=== PATIENT | female | born 1945 | race Caucasian/White ===

== ENCOUNTER 2019-11-18 13:47 | Outpatient (CLI) | payer MEDICARE, SELFPAY ==
--- NOTE | ~2019-11-18 | MM_ITS ---
EXAMINATION: MM screening mary kay BI w harrison HISTORY: Screening mammogram TECHNIQUE: Craniocaudal and mediolateral oblique 3-D tomosynthesis images were obtained and synthetic 2-D images were generated. CAD analysis was submitted and interpreted. COMPARISON: No prior mammogram is available for comparison at this institution. BREAST PARENCHYMAL COMPOSITION: The breasts are extremely dense, which lowers the sensitivity of mamm ography. FINDINGS: There is no evidence of suspicious mass, calcification, or architectural distortion to sugg est malignancy in either breast. There has been no suspicious interval change. IMPRESSION: 1. No mammographic evidence of malignancy. 2. Recommend routine screening mammography in one year. BI-RADS Category 1: Negative Reviewed, dictated and finalized at location A.
--- NOTE | ~2019-11-18 | DEXA_ITS ---
Bone Density Report Name: Zena Simmons Age: 74 Sex: Female Ethnicity: White Date of : 1945 Indication: osteopenia; height loss; Referring Provider: Marcus Rivas Study: Bone densitometry was performed. Exam Date: November 18, 2019 Accession number: [id number] Bone Density: Region BMD T-score Z-score Classification AP Spine (L1-L4) 0.777 -2.5 0.0 Osteoporosis Femoral Neck (Left) 0.649 -1.8 0.3 Osteopenia Total Hip (Left) 0.725 -1.8 0.0 Osteopenia Total Hip Bilateral Avg 0.726 -1.8 0.0 Osteopenia Femoral Neck (Right) 0.610 -2.2 -0.1 Osteopenia Total Hip (Right) 0.726 -1.8 0.0 Osteopenia World Health Organization criteria for BMD impression classify patients as: Normal (T-score at or above -1.0), Osteopenia (T-score between -1.0 and -2.5), or Osteoporosis (T-score at or below -2.5). 10-year Fracture Risk: FRAX not reported because: Some T-score for Spine Total or Hip Total or Femoral Neck at or below -2.5 Previous Exams: Region Exam Age BMD T-score BMD Change BMD Change Date g/cm2 vs Baseline vs Previous AP Spine(L1-L4) 11/18/2019 74 0.777 -2.5 -0.159(-17.0%) -0.090(-10.3%) 02/04/2014 68 0.867 -1.6 -0.069(-7.4%)# 0.022(2.6%)# 01/24/2012 66 0.845 -1.8 -0.091(-9.7%)# -0.050(-5.6%)# 11/21/2008 63 0.894 -1.4 -0.041(-4.4%)* -0.041(-4.4%)* 10/20/2004 59 0.936 -1.0 Total Hip(Left) 11/18/2019 74 0.725 -1.8 -0.099(-12.0%) -0.031(-4.1%)* 02/04/2014 68 0.756 -1.5 -0.068(-8.3%)# -0.034(-4.3%)# 01/24/2012 66 0.790 -1.2 -0.035(-4.2%)# 0.000(0.0%)# 11/21/2008 63 0.789 -1.3 -0.035(-4.2%)* -0.035(-4.2%)* 10/20/2004 59 0.824 -1.0 Total Hip(Right) 11/18/2019 74 0.726 -1.8 -0.116(-13.8%) -0.029(-3.9%)* 02/04/2014 68 0.756 -1.5 -0.087(-10.3%) -0.019(-2.4%)# 01/24/2012 66 0.775 -1.4 -0.068(-8.0%)# -0.023(-2.8%)# 11/21/2008 63 0.797 -1.2 -0.045(-5.4%)* -0.045(-5.4%)* 10/20/2004 59 0.842 -0.8 *Denotes significance at 95% confidence level, LSC for AP Spine = 0.022 g/cm2, LSC for Total Hip = 0.027 g/cm2 Clinical Information Provided by Patient: Patient maximum height was 64 Menopause Age: 51 Onset of menses at age 11 Number of children 3 Impression: The patient has osteoporosis, based on the Total Spine T-score. The BMD for the AP Spine(L1-L4) decreased, changing by -10.3% since the last DXA exam. The BMD for the Total Hip(Left) decreased, changing by -4.1% since the last
== END 2019-11-18 13:48 | disposition home or self-care (01) ==
PROVIDERS: PCP Family Medicine; Visit Provider Family Medicine
DX: Z12.31 Encounter for screening mammogram for malignant neoplasm of breast (principal); Z78.0 Asymptomatic menopausal state; M81.0 Age-related osteoporosis without current pathological fracture; M85.852 Other specified disorders of bone density and structure, left thigh; M85.851 Other specified disorders of bone density and structure, right thigh
CPT/HCPCS: 77063; 77067; 77080

== ENCOUNTER → 2020-06-22 07:55 | Outpatient (CLI) | payer MEDICARE, SELFPAY ==
--- NOTE | ~2020-06-22 | XR_ITS ---
XR hip RT 2V w AP pelvis DATE: 06/22/2020 14:01 INDICATION: Hip pain TECHNIQUE: AP pelvis. AP and lateral views of right hip COMPARISON: None FINDINGS: There is mild to moderate diffuse osteopenia. There is rotatory levoscoliosis of the lumbar spine and severe degenerative disc disease at L4-5 and L5-S1. The pubic symphysis and sacroiliac joints are intact. No pelvic fracture or bone destruction is evide nt. Hip joint spaces are symmetric and relatively preserved. No fracture, dislocation, avascular necrosis or bone destruction of the right hip. Prominent amount fecal 2 on the rectum and colon. 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
== END ==
PROVIDERS: PCP Family Medicine; Visit Provider Family Medicine
DX: M85.851 Other specified disorders of bone density and structure, right thigh (principal); M51.36 Other intervertebral disc degeneration, lumbar region
CPT/HCPCS: 73502

== ENCOUNTER → 2020-11-13 12:07 | Outpatient (CLI) | payer MEDICARE, SELFPAY ==
--- NOTE | ~2020-11-13 | MR_ITS ---
EXAMINATION: MR lumbar spine wo con DATE: 11/13/2020 13:01 INDICATION: Low back pain. Right leg pain. TECHNIQUE: Magnetic resonance imaging (MRI) of the lumbar spine was performed without intravenous con trast. Sequences included sagittal T2-weighted FSE, sagittal T2-weighted FS FSE, sagittal T1-weighted FSE, and axial T2-weighted FSE. COMPARISON: None FINDINGS: There is 11 degrees levoscoliosis of lumbar spine. There is 5 mm anterolisthesis of L3 on L 4 and L4-L5. Vertebral body heights are normal. There is moderately decreased disc height at L3-L4 an d severely decreased disc height at L4-L5 and L5-S1 with endplate remodeling. The distal spinal cord signal intensity is normal. The conus medullaris is at L2. There is an 8 mm cyst in left kidney. The following disc levels are specifically discussed: L1-L2: The disc does not extend beyond the endplate margin. There is moderate bilateral facet joint o steoarthritis. There is no neural foraminal stenosis. There is no central canal stenosis. L2-L3: The disc is bulging. There is severe bilateral facet joint osteoarthritis. There is mild bilat eral neural foraminal stenosis. There is no central canal stenosis. L3-L4: The disc is bulging with superimposed right central extrusion. There is severe bilateral facet joint osteoarthritis. There is mild bilateral neural foraminal stenosis. There is moderate central c anal stenosis. There is severe stenosis of right lateral recess. L4-L5: The disc is bulging and has an annular fissure. There is severe bilateral facet joint osteoart hritis. There is moderate bilateral neural foraminal stenosis. There is mild central canal stenosis. There is mild stenosis of right lateral recess and severe stenosis of left lateral recess. L5-S1: The disc is bulging and has an annular fissure. There is moderate right and severe left facet joint osteoarthritis. There is mild left neural foraminal stenosis. There is mild central canal steno sis. IMPRESSION: 1. Severe lumbar spondylosis. 2. Lumbar levoscoliosis. Reviewed, dictated and finalized at location A.
== END ==
PROVIDERS: PCP Family Medicine; Visit Provider Family Medicine
DX: M47.896 Other spondylosis, lumbar region (principal)
CPT/HCPCS: 72148

== ENCOUNTER 2021-06-22 10:12 | Outpatient (CLI) | payer MEDICARE, SELFPAY ==
--- NOTE | ~2021-06-22 | US_ITS ---
EXAMINATION: US carotid duplex BI DATE: 06/22/2021 11:03 INDICATION: Amaurosis fugax TECHNIQUE: Grayscale, color Doppler, and pulsed Doppler images of the cervical carotid arteries were obtained. The degree of vessel stenosis is placed in one of the following categories: normal, <50%, 5 0-69%, >=70% but less than near-occlusion, near-occlusion, or total occlusion. Note that percent sten osis relative to normal distal artery lumen diameter is indirectly measured from velocity measurement s as described by Cristofer, et al. Radiology 2003; 229:340-346. Notes: Normal: Peak systolic velocity <125 centimeters/sec and no plaque <50%. Peak systolic velocity <125 ( EDV <40; ICA/CCA PSV ratio <2.0; used these factors only a tandem lesions or low cardiac output or co ntralateral disease) 50-69 %: PSV 125-230 (EDV 40-100; ratio 2-4) >= 70% but less than near occlusion: PSV greater than 230 (EDV > 100; ratio> 4.0) Near Occlusion: PSV that is variable; markedly narrowed lumen Occlusion: Absent flow on color/spectral Doppler and no lumen on rowe scale. COMPARISON: None. FINDINGS: RIGHT: The right common carotid artery (CCA) peak systolic velocity (PSV) is 84 cm/s. The right internal car otid artery (ICA) PSV is 71 cm/s. The right ICA end-diastolic velocity (EDV) is 20 cm/s. The right IC A/CCA PSV ratio is 0.9. The external carotid artery (ECA) PSV is 69 cm/s. There is antegrade flow in the right vertebral artery. LEFT: The left CCA PSV is 65 cm/s. The left ICA PSV is 71 cm/s. The left ICA EDV is 17 cm/s. The left ICA/C CA PSV ratio is 0.9. The ECA PSV is 69 cm/s. There is antegrade flow in the left vertebral artery. IMPRESSION: 1. Less than 50% stenosis in the right internal carotid artery by sonographic criteria. 2. Less than 50% stenosis in the left internal carotid artery by sonographic criteria. Reviewed, dictated and finalized at location A. IMPRESSION: 1. Less than 50% stenosis in the right internal carotid artery by sonographic c jace. 2. Less than 50% stenosis in the left internal carotid artery by sonographic jorge mazariegos.
== END 2021-06-22 10:13 | disposition home or self-care (01) ==
LOC: ANHIMG 10:17
PROVIDERS: PCP Family Medicine; Visit Provider Family Medicine
DX: I65.23 Occlusion and stenosis of bilateral carotid arteries (principal)
CPT/HCPCS: 93880

== ENCOUNTER 2023-05-18 12:50 | Outpatient (CLI) | payer MEDICARE, SELFPAY ==
--- NOTE | ~2023-05-18 | DEXA_ITS ---
Bone Density Report Name: CONNIE BURGESS Age: 77 Sex: Female Ethnicity: White Date of : 1945 Indication: postmenopausal osteoporosis; height loss; Referring Provider: MARION GUPTA Study: Bone densitometry was performed. Exam Date: May 18, 2023 Accession number: [id number] Bone Density: Region BMD T-score Z-score Classification AP Spine(L1-L4) 0.894 -1.4 1.2 Osteopenia Femoral Neck (Left) 0.623 -2.0 0.2 Osteopenia Total Hip (Left) 0.731 -1.7 0.3 Osteopenia Femoral Neck (Right) 0.590 -2.3 -0.1 Osteopenia Total Hip (Right) 0.706 -1.9 0.1 Osteopenia Total Hip Mean 0.718 -1.8 0.2 Osteopenia World Health Organization criteria for BMD impression classify patients as: Normal (T-score at or above -1.0), Osteopenia (T-score between -1.0 and -2.5), or Osteoporosis (T-score at or below -2.5). 10-year Fracture Risk(1): Major Osteoporotic Fracture 16% Hip Fracture 5.2% Reported Risk Factors: [place] (), Neck BMD=0.590, BMI=23.7 (1) FRAX(R) Version 3.08. Fracture probability calculated for an untreated patient. Fracture probability may be lower if the patient has received treatment. Previous Exams: Region Exam Age BMD T-score BMD Change BMD Change Date g/cm2 vs Baseline vs Previous AP Spine (L1-L4) 05/18/2023 77 0.894 -1.4 0.117 (15.0%)* 0.117 (15.0%)* 11/18/2019 74 0.777 -2.5 Total Hip(Left) 05/18/2023 77 0.731 -1.7 0.006 (0.8%) 0.006 (0.8%) 11/18/2019 74 0.725 -1.8 Total Hip(Right) 05/18/2023 77 0.706 -1.9 -0.020 (-2.8%) -0.020 (-2.8%) 11/18/2019 74 0.726 -1.8 *Denotes significance at 95% confidence level, LSC for AP Spine = 0.022 g/cm2, LSC for Total Hip = 0.027 g/cm2 Clinical Information Provided by Patient: Has used the following medications: Vitamin D, Calcium Patient maximum height was 63 Menopause Age: 51 Drinks caffeinated beverages Onset of menses at age 12 Number of children 3 Impression: The patient has low bone mass, based on the Right Femoral Neck T-score. The patient has an estimated ten-year risk of hip fracture of 5.2% and an estimated ten-year risk of major fracture of 16%, based on the WHO FRAX algorithm. No significant bone loss was observed. Discussion: BONE DENSITY IS LOW AT ONE OR MORE SKELETAL SITES. THE PATIENT'S BMD AND CLINICAL RISK FACTORS CONTRIBUTE TO THIS PATIENT'S INCREASED RISK OF FRACTURE. This patient's lowest T-score is low at one or mo
== END 2023-05-18 12:51 | disposition home or self-care (01) ==
PROVIDERS: PCP Emergency Medicine; Visit Provider Emergency Medicine
DX: M85.89 Other specified disorders of bone density and structure, multiple sites (principal); M81.0 Age-related osteoporosis without current pathological fracture
CPT/HCPCS: 77080

== ENCOUNTER 2025-01-08 08:50 | Outpatient (CLI) | payer MEDICARE, SELFPAY ==
--- NOTE | ~2025-01-08 | MM_ITS ---
EXAMINATION: MM screening mary kay BI w harrison HISTORY: Screening TECHNIQUE: Craniocaudal and mediolateral oblique 3-D tomosynthesis images were obtained and synthetic 2-D images were generated. CAD analysis was submitted and interpreted. COMPARISON: Comparison to multiple prior studies sequentially, with oldest reviewed study dated , 01/24/2012 BREAST PARENCHYMAL COMPOSITION: The breasts are extremely dense, which lowers the sensitivity of mammography. FINDINGS: There is no evidence of suspicious mass, calcification, or architectural distortion to suggest malignancy in either breast. IMPRESSION: 1. No mammographic evidence of malignancy. 2. Recommend routine screening mammography in one year. BI-RADS Category 1: Negative Reviewed, dictated and finalized at location B.
== END 2025-01-08 08:51 | disposition home or self-care (01) ==
LOC: ANHFOHIMG 08:52
PROVIDERS: PCP Family Medicine; Visit Provider Family Medicine
DX: Z12.31 Encounter for screening mammogram for malignant neoplasm of breast (principal)
CPT/HCPCS: 77063; 77067